=== PATIENT | male | born 1955 | race Hispanic/Latino ===

== ENCOUNTER 2019-06-21 | Emergency (ER) | payer SELFPAY ==
[2019-06-21] MEDS ORDERED: METFORMIN500 MG PO (20:12)
[2019-06-21] MEDS ORDERED: LISINOPRIL5 MG PO (20:12)
[2019-06-22] MEDS ORDERED: ULTRAM50 M1 PO (00:49)
[2019-06-22] MEDS ORDERED: FLEXERIL PO (00:49)
== END 2019-06-22 01:22 | disposition home or self-care (01) | DRG 552 ==
DX: S13.9XXA Sprain of joints and ligaments of unspecified parts of neck, initial encounter (principal); E11.9 Type 2 diabetes mellitus without complications; I10 Essential (primary) hypertension; X58.XXXA Exposure to other specified factors, initial encounter

== ENCOUNTER 2020-04-03 09:14 | Emergency (ER) | payer MEDICARE ==
[~2020-04-03] VITALS: Ht 167.6 cm; Wt 96.0 kg
[~2020-04-03 09:14] MED LIST: FLEXERIL PO; KEFLEX500 M1 PO; LISINOPRIL5 MG PO; METFORMIN500 MG PO; ULTRAM50 M1 PO
[2020-04-03 09:49] LABS: HEMATOCRIT 44.9 % (39.0-50.0); MEAN CELL VOLUME 87.7 fL CALC (80.0-100.0); MEAN CORPUSCULAR HGB 29.3 pG CALC (26.0-32.0); MEAN CORPUSCULAR HGB CONC 33.4 g/dL CAL (32.0-36.0); NEUT# 1.97 thou/uL (1.82-7.42); RED BLOOD COUNT 5.12 mill/uL (4.70-6.10); RED CELL DISTRI WIDTH 11.9 % (11.5-15.5)
[2020-04-03 09:59] LABS: ALBUMIN 3.6 g/dL (3.2-5.0); ALKALINE PHOSPHATASE 63 u/l (38-126); ANION GAP 9 (6-22 (CALC)); BUN 17 mg/dL (8-23); BUN/CREATININE RATIO 18 (12-20 (CALC)); CARBON DIOXIDE 31 mmol/l (22-30); CHLORIDE 102 mmol/l (95-108); CREATININE 0.9 mg/dL (0.7-1.3); GFR > 60 ML/MIN (>=60 (CALC)); GFR FOR AFR.AMER. > 60 ML/MIN (>=60 (CALC)); POTASSIUM 4.2 mmol/l (3.5-5.1); SGOT/AST 34 u/l (19-48); SODIUM 137 mmol/l (137-146); TOTAL PROTEIN 7.2 g/dL (6.3-8.2)
[2020-04-03 10:00] LABS: ACT PARTIAL THROMBO TIME 25.9 SECONDS (20.0-32.5); PROTHROMBIN TIME 9.6 SECONDS (9.0-12.5)
[2020-04-03] MEDS ORDERED: LISINOPRIL20 MG PO (10:04)
[2020-04-03 10:07] LABS: BILIRUBIN, TOTAL 0.5 mg/dL (0.0-1.4)
[2020-04-03] MEDS ORDERED: IBUPROFEN600 MG PO (10:52)
[2020-04-03 11:08] VITALS: BP 153/86
== END 2020-04-03 11:11 | disposition home or self-care (01) ==
LOC: ED 09:14
PROVIDERS: Student in an Organized Health Care Education/Training Program
DX: R07.9 Chest pain, unspecified (principal); I10 Essential (primary) hypertension; E11.9 Type 2 diabetes mellitus without complications; Z79.84 Long term (current) use of oral hypoglycemic drugs